=== PATIENT | male | born 1970 | race Caucasian/White ===

== ENCOUNTER 2016-12-13 06:42 | Emergency (ER) | payer MEDICAID, OTHER ==
[~2016-12-13] VITALS: Ht 175.3 cm; Wt 69.0 kg
[~2016-12-13 06:42] MED LIST: BACTDS PO; CEPH-443 PO
[2016-12-13 06:45] VITALS: Ht 175.3 cm; Wt 69.0 kg
[2016-12-13] MEDS ORDERED: CLINDAMYCIN 300 MG INJ IM ONE (07:30)
[2016-12-13] MEDS ORDERED: LIDOCAINE 2% (MDV) 20 ML INJ INJ ONE (07:30)
[2016-12-13] MEDS ORDERED: CLIN-73 PO (07:48)
[2016-12-13] MEDS ORDERED: IBUP-1542 PO (07:49)
[2016-12-13] MEDS ORDERED: HYDR-906 PO (07:49)
--- NOTE | 2016-12-13 08:04 | ERD ---
ER Documentation Chief Complaint Chief Complaint right upper arm wopund x 8 days HPI This is a 46-year-old male with a history of bipolar disease that presents to the ER complaining of a wound to his right upper arm which started 5 days ago. Patient states that the area was draining earlier today, and that pain has gotten better, however he is still experiencing discomfort. He denies any fevers or chills. Patient denies any numbness or tingling to his arm. He denies any trauma. ROS 12 point review of systems was done, all negative except per HPI. Medications Home Meds Active Scripts Hydrocodone/Acetaminophen ([place] 5-325 Tablet) 1 Each Tablet, 1 TAB PO Q6H Y for PAIN, #7 TAB Prov:SANDRA ALBERTO Lashae 12/13/16 Ibuprofen* (Motrin*) 600 Mg Tab, 600 MG PO Q6, #30 TAB Prov:JUANITO ALBERTOSIMONA Bhardwaj 12/13/16 Clindamycin Hcl* (Clindamycin Hcl*) 300 Mg Capsule, 300 MG PO TID for 10 Days, CAP Prov:DOLLYSANDRA C 12/13/16 Cephalexin* (Keflex*) 500 Mg Capsule, 500 MG PO Q6, #30 CAP Prov:STEPHANY RAYMODN DO 02/22/16 Sulfamethoxazole-Trimethoprim* (Bactrim* DS) 800-160 Mg Tab, 1 TAB PO BID, #20 TAB Prov:MANDISTEPHANY DO 02/22/16 Allergies Allergies: Coded Allergies: No Known Allergy (Unverified , 02/22/16) PMhx/Soc History of Surgery: Yes (double hernia repair) Physical Exam Vitals Vital Signs Date Time Temp Pulse Resp B/P Pulse Ox O2 Delivery O2 Flow Rate FiO2 12/13/16 06:45 98.6 56 18 118/80 99 Physical Exam GENERAL: Patient has very poor hygiene, appears to be homeless. HEENT: Atraumatic. Poor dentition CHEST: Clear to auscultation bilaterally. There are no rales, wheezes or rhonchi. HEART: Regular rate and rhythm. No murmurs, clicks, rubs or gallops. EXTREMITIES: Has full and nonpainful range of motion of his right shoulder and right elbow there is no erythema or tenderness to palpation to the joints. NEURO: Alert and oriented. Patient has incoherent speech, however knows that he is in the hospital for an abscess. SKIN: There is a 5 cm x 6 cm fluctuant abscess with scabbing in the center of the abscess and yellow purulent discharge coming from the center of the wound. Results 24 hrs Current Medications Medications (Trade) Dose Ordered Sig/Efrain Route PRN Reason Start Time Stop Time Status Last Admin Dose Admin Lidocaine (Xylocaine 2% (Mdv) 20 ml) 20 ml ONCE ONCE INJ 12/13/16 07:30 12/13/16 07:31 DC Clindamycin Phosphate (Cleocin) 300 mg ONCE ONCE IM 12/13/16 07:30 12/13/16 07:31 DC 12/13/16 07:37 Procedures/MDM Abscess Incision and Drainage with irrigation by me: Location: Right upper arm Anesthesia: Cold 2% lidocaine Technique: irrigated with Betadine. Vertical incision was made , some purulent yellow discharge was expressed Packing: None Complications: Neurovascularly intact post procedure 48 hour wound check. Scar minimization instructions given. Patient's skin symptoms have stabilized while they have been evaluated in the department and are appropriate for outpatient care and work up. His abscess was already draining when he came to the ER, he did attempt to get more pus out , however only a small amount of pus came out. I gave patient a shot of clindamycin will send him home with a 10 day course of clindamycin. Patient is afebrile and nontoxic appearing in the ER. Exam and w/u not consistent w/ sepsis, deep space infection, or foreign body. Departure Diagnosis: Primary Impression: Abscess Condition: Stable Patient Instructions: Abscess, Incision And Drainage Additional Instructions: Call your primary care doctor TOMORROW for an appointment during the next 1-2 days.See the doctor sooner or return here if your condition worsens before your appointment time. SANDRA ALBERTO Dec 13, 2016 08:04
[2016-12-13] MEDS ORDERED: HYDROCODONE/APAP (5/325) TAB PO ONE (08:30)
== END 2016-12-13 08:34 | disposition home or self-care (01) ==
LOC: FTE 06:42
DX: L02.413 Cutaneous abscess of right upper limb (principal)
CPT/HCPCS: 10060; 96372; Z7502; Z7610

== ENCOUNTER 2017-01-17 02:58 | Emergency (ER) | payer SELFPAY ==
[~2017-01-17] VITALS: Ht 186.7 cm; Wt 68.7 kg
[~2017-01-17 02:58] MED LIST changes: +CLIN-73 PO; +HYDR-906 PO; +IBUP-1542 PO
[2017-01-17 03:03] VITALS: Ht 186.7 cm; Wt 68.7 kg
== END 2017-01-17 04:05 | disposition left against medical advice (07) ==
LOC: FTE 02:58
DX: Z53.21 Procedure and treatment not carried out due to patient leaving prior to being seen by health care provider (principal)